=== PATIENT | female | born 1960 | race Caucasian/White ===

== ENCOUNTER → 2018-09-28 | Outpatient (CLI) | payer MEDICARE ==
[~2018-09-28] MED LIST: ALBU17IN INH; CELE20TA PO; COUM7.5T PO; DIOV160T3 PO; FOLI1TAB11 PO; LISI-538 PO; MIRA3350 PO; MOM30SS PO; MULTCAP PO; QUIN1TAB3 PO; ROBITUSSIN OR; SENO8.6T10 PO; SERAX OR; SPIR1CAP INH; TYLE325T5 PO; VITA100T60 PO
--- NOTE | 2018-09-28 09:48 | REP ---
CT CHEST WITHOUT CONTRAST: LOW-DOSE SCREENING STUDY. HISTORY: COPD. 40 pack-year smoking history. No comparison chest CT. CT FINDINGS: Preliminary digital welding foreman radiograph demonstrates that the lungs are hyperinflated. There is a mild levoconvex lumbar curvature noted incidentally. Axial CT images demonstrate moderate emphysematous changes. There are mild biapical pleuroparenchymal fibrotic changes. There is a granulomatous calcification in the left upper lobe posteriorly on page 27 of 116. No significant pulmonary nodule is appreciated. Vascular calcification is noted. IMPRESSION: Lung-RADS category 1 negative findings. Repeat screening study suggested in 1 year. Electronically Signed by Camron Pires MD 09/28/2018 10:25 A
== END ==
LOC: M RAD 07:55
PROVIDERS: ATTEND Internal Medicine Cardiovascular Disease
DX: J44.9 Chronic obstructive pulmonary disease, unspecified (principal)